=== PATIENT | male | born 1980 | race Caucasian/White ===

== ENCOUNTER → 2023-11-22 15:39 | Outpatient (CLI) | payer BC, SELFPAY ==
--- NOTE | 2023-11-22 15:43 | DI.RAD.S_ITS ---
PROCEDURE: XR HIP W PEL IF DONE DEVON MIN 4V INDICATIONS: Bilateral hip DJD TECHNIQUE: AP pelvis with lateral view(s) of the bilateral hip(s). COMPARISON: None. FINDINGS: Bones: No fractures or dislocations. Severe bilateral hip joint osteoarthritic changes are seen with complete loss of joint space, subchondral sclerosis and cyst formation and prominent marginal osteophyte formation. Avascular necrosis of bilateral femoral heads cannot be entirely excluded. Pelvic ring appears intact. No suspicious bony lesions. Soft tissues: The visualized bowel gas pattern is normal. No suspicious soft tissue calcifications. IMPRESSION: Severe bilateral hip joint osteoarthritis as described above. No acute fracture or dislocation. Cannot rule out avascular necrosis of bilateral femoral heads. Dictated by: Yair Dave M.D. on 11/22/2023 at 17:21 Approved by: Yair Dave M.D. on 11/22/2023 at 17:21
== END ==
PROVIDERS: PCP Family Medicine Sports Medicine; Referring Provider Physical Medicine & Rehabilitation; Visit Provider Physical Medicine & Rehabilitation
DX: M16.0 Bilateral primary osteoarthritis of hip (principal); R26.81 Unsteadiness on feet
CPT/HCPCS: 73522

== ENCOUNTER → 2024-01-25 13:46 | Outpatient (CLI) | payer BC, SELFPAY ==
--- NOTE | 2024-01-25 14:04 | EKG_ITS ---
[facility] [address] [address] Test Date: 2024-01-25 Pat Name: Jesse Jorge Department: [facility] Room: Gender: Male Data Coordinator: EMORY : 1980 Requested By: Order Number: [id number] Reading MD: Ceasar Mahoney Measurements Intervals [place] Rate: 74 P: 39 SC: 166 QRS: 15 QRSD: 98 T: 36 QT: 412 QTc: 457 Interpretive Statements Normal sinus rhythm Electronically Signed On 01-25-2024 18:26:38 PDT by Ceasar Mahoney
[2024-01-25 14:36] LABS: Add Manual Diff / Slide Review NO; Basophils Absolute Auto 100 /uL (0-100); Eosinophils Absolute Auto 100 /uL (0-450); Hematocrit 45.1 % (41-53); Hemoglobin 15.9 g/dL (13.5-17.5); Lymphocytes Absolute Auto 1300 /uL (1100-4500); Lymphocytes Percent Auto 19.8 % (25-40); Mean Corpuscular HGB Conc 35.2 % (30-36); Mean Corpuscular Hemoglobin 30.9 PG (26-34); Mean Corpuscular Volume 87.9 fL (80-100); Monocytes Absolute Auto 400 /uL (0-900); Monocytes Percent Auto 5.5 % (3-14); Neutrophils Absolute Auto 4800 /uL (1500-7000); Neutrophils Percent Auto 71.7 % (50-75); Platelet Count 221 X10^3/uL (150-400); Red Blood Cell Count 5.14 X10^6/uL (4.5-5.9); White Blood Cell Count 6.7 X10^3/uL (4.5-11.0)
[2024-01-25 14:46] LABS: Hemoglobin A1C% w Est Avg Glu 5.3 % (4.0-6.0)
[2024-01-25 14:48] LABS: Albumin 4.7 g/dL (3.5-5.0); BUN Creatinine Ratio 13.8 (6-22); Blood Urea Nitrogen 12 mg/dL (9-20); Calcium 9.4 mg/dL (8.4-10.2); Carbon Dioxide 28 mmol/L (22-32); Chloride 105 mmol/L (98-107); Estimated Glomerular Filt Rate > 60 mL/min (>60); Glucose 113 mg/dL (70-100); HEMOLYSIS < 15 (0-50); Potassium 4.1 mmol/L (3.4-5.1); Sodium 142 mmol/L (137-145)
[2024-01-25 14:57] LABS: Prealbumin 31.7 mg/dL (17.6-36.0)
[2024-01-26 15:03] LABS: Vitamin D 25 Hydroxy (D3) 18.3 ng/mL (30.0-100.0)
== END ==
PROVIDERS: PCP Family Medicine Sports Medicine; Referring Provider Orthopaedic Surgery Adult Reconstructive Orthopaedic Surgery; Visit Provider Orthopaedic Surgery Adult Reconstructive Orthopaedic Surgery
DX: Z01.818 Encounter for other preprocedural examination (principal); Z01.812 Encounter for preprocedural laboratory examination; E55.9 Vitamin D deficiency, unspecified; R77.0 Abnormality of albumin; R73.9 Hyperglycemia, unspecified
CPT/HCPCS: 36415; 80048; 82040; 82306; 83036; 84134; 85025; 93005

== ENCOUNTER 2024-01-25 15:12 | Outpatient (CLI) | payer BC, SELFPAY ==
[2024-01-25] VITALS (8 sets, daily range): BP systolic 144–175; BP diastolic 78–108; PULSE 73–89; RESP 11–20; TEMP 36.1; O2SAT 96–99
[2024-01-25] MEDS: MIDAZOLAM 2 MG/2 ML VIAL IV (15:59)
--- NOTE | 2024-01-25 16:00 | DI.RAD.S_ITS ---
PROCEDURE: PAIN L INTERLAMINAR/CAUDAL INJ INDICATIONS: L5-S1 translaminar [place] COMPARISON: None. FINDINGS: Fluoroscopic spot filming was performed to verify placement of spinal needles at the L5-S1 level(s), as labeled on the films. Appropriate location(s) of the needle tip(s) was confirmed by injection of iodinated contrast. IMPRESSION: Contrast a needle placement overlying L5-S1. Dictated by: Marcia Jimenez M.D. on 01/25/2024 at 16:50 Approved by: Marcia Jimenez M.D. on 01/25/2024 at 16:50
[2024-01-25] MEDS: BUPIVACAINE 0.25% (PF) VIAL 2 ML INJ (16:02)
[2024-01-25] MEDS: DEXAMETHASONE 10 MG/ML VIAL INJ (16:02)
[2024-01-25] MEDS: iopamidoL 15 ML VIAL 3 ML INJ (16:02)
[2024-01-25] MEDS: BETAMETHASONE 30 MG/5 ML MDV 6 MG INJ (16:03)
--- NOTE | 2024-01-25 16:13 | PM.PROC.IR.1 ---
Date/Time/Diagnoses Date of procedure: 01/25/24 Time of procedure: 16:13 Pre-procedure diagnosis: 1. HNP WITH RADICULAR FEATURES, 2. MULTILEVEL CENTRAL STENOSIS, Post-procedure diagnosis: same Procedure Notes Procedure: 1. FLUOROSCOPICALLY GUIDED CONTRAST CONTROLLED INTERLAMINAR EPIDURAL STEROID INJECTION - L5/S1 Indications: Jesse is referred by Dr. Llamas for treatment of Bilateral Foraminal Stenosis L>R LE symptoms. Physician: Lonnie Motta Total Fluoroscopy time (seconds): 8 Total sedation minutes: 10 Complications: none Procedure in detail & Post-procedure care: FINDINGS Multilevel Central Spinal Stenosis with Nerve Root Compression DESCRIPTION OF PROCEDURE Fluoroscopically guided, contrast-controlled L5/S1 translaminar epidural steroid injection. Following review of allergy and review of potential side effects and complications, including, but not necessarily limited to, infection, allergic reaction, local tissue breakdown, temporary as well as permanent nerve injury, paralysis, stroke and possible , the patient indicated that the patient understood and agreed to proceed. An informed consent document was signed by the patient, witnessed by a nurse, and placed in the patient's chart. Additionally, other treatment options including modalities, medications, and physical therapy were reviewed with the patient. After review of previous anaesthesic history and IV conscious sedation the patient was deemed safe to proceed with today?s procedure with IV conscious sedation as ASA class II designation. Safety time-out was performed to confirm patient ID, procedure to be performed and site of procedure. IV sedation was accomplished with a combination of 2mg of Versed administered by the RN after DO order, titrated to patient comfort during the course of the procedure while the patient remained responsive to all verbal commands. In the prone position, following sterile prep and drape of the lumbar region, the L5/S1 translaminar space was identified fluoroscopically. The skin was anesthetized via a 25-gauge, 1.5-inch needle with 1% lidocaine solution. At this point, a 22-gauge short bevel spinal needle was atraumatically introduced and advanced under fluoroscopic guidance into the region of the L5/S1 translaminar space. Depth was confirmed on lateral view. Radiological data, including multiple fluoroscopic views of the lumbar spine, reveal a spinal needle at the L5/S1 translaminar space. Lateral views then show placement of the needle in the epidural space. Subsequent views show contrast material flowing superiorly and inferiorly in the epidural space. No vascular or intrathecal uptake is observed. At this point, using loss of resistance technique with saline and air, the epidural space was entered. This was confirmed following negative aspiration with injection of approximately 1.5cc of Isovue 200, showing excellent epidural flow without vascular or intrathecal uptake. At this point, 1 cc of 1% lidocaine solution combined with 2cc or 10mg of dexamethasone and 6mg of betamethasone was injected without incident. The patent tolerated the procedure without signs of symptoms of complications prior to transfer to the recovery area for further monitoring. The patient was then transferred to the recovery area where they were observed for an appropriate period of time after the injection. The patient reported a VAS score of 6 prior to the procedure and a post-procedure VAS of 0. POST OP INSTRUCTIONS The patient was provided a Pain Log to continue to record their response to the target-specific procedure prior to follow-up visit with their referring physician. Additionally, specific post-injection care instructions and a contact number to our office were provided if concerns arise regarding possible complications associated with the procedure are suspected.
== END 2024-01-25 16:37 | disposition home or self-care (01) ==
LOC: RAD 15:12
PROVIDERS: PCP Family Medicine Sports Medicine; Referring Provider Physical Medicine & Rehabilitation; Visit Provider Physical Medicine & Rehabilitation
DX: M51.17 Intervertebral disc disorders with radiculopathy, lumbosacral region (principal); M48.07 Spinal stenosis, lumbosacral region; Z01.818 Encounter for other preprocedural examination; Z01.812 Encounter for preprocedural laboratory examination; R77.0 Abnormality of albumin; E55.9 Vitamin D deficiency, unspecified; R73.9 Hyperglycemia, unspecified
CPT/HCPCS: 36415; 62323; 80048; 82040; 82306; 83036; 84134; 85025; 93005; 99152; J0702; J1100; J2250; J3490

== ENCOUNTER 2024-03-31 11:51 | Day surgery (SDC) | payer BC, SELFPAY ==
[2024-03-16 13:52] VITALS: BMI 32.6
[2024-03-31] VITALS (10 sets, daily range): BP systolic 102–171; BP diastolic 53–114; PULSE 92–124; RESP 13–29; TEMP 36.6–37.3; O2SAT 96–100; BMI 33.6
--- NOTE | 2024-03-31 06:00 | DI.RAD.S_ITS ---
PROCEDURE: XR HIP W PEL IF DONE LT 2V INDICATIONS: JOSE TECHNIQUE: 2 view(s) of the hip acquired. COMPARISON: None. FINDINGS: Bones: Intraoperative left hip arthroplasty changes, with hardware components in expected positions. The hip joint appears congruent. The visualized bony structures appear intact. Soft tissues: No suspicious soft tissue densities. IMPRESSION: Expected intraoperative appearance of a hip arthroplasty. Dictated by: Monique Lauren MD, PhD on 04/03/2024 at 13:01 Approved by: Monique Lauren MD, PhD on 04/03/2024 at 13:02
[2024-03-31] MEDS: LACTATED RINGERS 1,000 ML 42 ML IV ×2 (12:06→14:45)
[2024-03-31] MEDS: ACETAMINOPHEN 325 MG TABLET 975 MG PO (12:06)
--- NOTE | 2024-03-31 12:38 | PM.PREOP ---
Pre-operative Note Interval Note History & Physical reviewed/Exam performed by Physician: Yes Changes to H&P: No
--- NOTE | 2024-03-31 12:39 | PM.PREOP ---
Pre-operative Note Interval Note History & Physical reviewed/Exam performed by Physician: Yes Changes to H&P: No
[2024-03-31] MEDS: MELOXICAM 7.5 MG TABLET 15 MG PO (12:45)
--- NOTE | 2024-03-31 12:46 | SUR.OPER ---
Patient supine on padded [place] table, one arm on padded arm board at <90, other arm padded and secured with tape across patient's chest, both legs secured in padded traction boots and positioned per surgeon, padded post at patient's groin, pressure points checked and padded.
[2024-03-31] MEDS: CEFAZOLIN 2 GM/100 ML PREMIX 100 ML IV ×2 (13:11→20:53)
[2024-03-31] MEDS: ROPIVACAINE/EPI/CLONIDINE/KET 50 ML SYRINGE INJ (13:31)
[2024-03-31] MEDS: SODIUM CHLORIDE IRRIG SOLUTION 3,000 ML 3000 ML IRR (13:33)
[2024-03-31] MEDS: TRANEXAMIC ACID 1,000 MG VIAL 2000 MG INJ ×2 (13:46→15:08)
--- NOTE | 2024-03-31 15:10 | DI.RAD.S_ITS ---
PROCEDURE: XR HIP W PEL IF DONE LT 2V INDICATIONS: LEFT ANTERIOR HIP TECHNIQUE: AP pelvis and lateral view of the hip acquired. COMPARISON: [facility], [facility], XR HIP W PEL IF DONE LT 2V, 03/31/2024, 14:20. FINDINGS: Bones: Patient is status post left hip arthroplasty, with hardware components in expected positions. The hip joint appears congruent. Severe right hip osteoarthritis. The visualized bony structures appear intact. Soft tissues: Overlying postoperative changes are noted. No suspicious soft tissue densities. IMPRESSION: Expected post-operative appearance of a hip arthroplasty. Dictated by: Monique Lauren MD, PhD on 04/03/2024 at 13:02 Approved by: Monique Lauren MD, PhD on 04/03/2024 at 13:02
--- NOTE | 2024-03-31 15:28 | P.OP_ITS ---
Operative Date/Time/Diagnoses Date of procedure: 03/31/24 Pre-op diagnosis: Left hip osteoarthritis Post-op diagnosis: same Procedure & Clinicians Procedure: Left total hip arthroplasty through anterior approach Same procedure as scheduled: Yes Surgeon: Bhupendra Corcoran Scale Assembly Set Up Worker: Luna Ray Anesthesia Type: Spinal, Sedation and Local Operative Notes Estimated Blood Loss (mL): 350 Procedure in detail: Left Uncemented Direct Anterior Depuy Total Hip Arthroplasty: Implants: * [place] Gription size 58 cup?with +4 liner * Actis femoral stem size 7 high offset? * 36 mm +8.5 ceramic femoral head? 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 He developed severe arthritis in his bilateral hips. We discussed the possibility of simultaneous bilateral total hip arthroplasties however I felt that given his extremely muscular body habitus the case was likely to require additional steps for exposure and take additional time. Additionally he had large osteophytes around both his femur and acetabulum which I anticipated would lead to additional bleeding following removal. I therefore recommended staged total hips. He is already scheduled for the contralateral side. On this initial side today I utilize an offset liner and a +8.5 head to maximize length as I will be returning soon for the contralateral side. I initially trialed with a standard offset neck, anticipating that the combination of the offset liner and the +8.5 head would result in adequate offset denominational however I noted diminished offset on his radiographs so I transitioned to a high offset stem for final implants Procedure in Detail: This patient was seen preoperatively and evaluated for hip pain which was refractory to numerous nonoperative treatment modalities. Their hip pain correlated with radiographic changes demonstrating significant degeneration in the hip joint. The risks and benefits of continued nonoperative management versus operative management were discussed at length and all of the patient?s questions were answered. Additional educational materials providing further details beyond our discussion in clinic were provided via a publicly available patient education video which included the incidence of medical complications associated with total hip arthroplasty, reasons for revision following total hip arthroplasty, and patient satisfaction rates following total hip arthroplasty. That video can be accessed at [email or web address] . With this understanding of the risks inherent to the procedure, the patient elected to move forward with operative management. Following preoperative optimization, the patient was scheduled for surgery. The patient was met in the preoperative holding area the day of the procedure and all questions were answered. The patient?s nares were swabbed with betadine in order to decolonize them from MRSA. Informed consent was signed and the left limb was marked with indelible ink.? The patient was brought back to the operating room where anesthesia was induced. The patient was transferred to the [place] table and all bony prominences were padded. The operative site was prepped and draped in the usual sterile fashion. Prior to incision, tranexamic acid and cefazolin were administered. Operative templating images were displayed demonstrating the anticipated implant sizes and correct operative extremity. A timeout procedure was performed verifying the patient?s identity, medical comorbidities, allergies, relevant medications, anesthesia type and the surgical plan. All present were in agreement. The assistance of a physician personal care assistant was required for positioning, room setup, soft tissue retraction and wound closure. Without this assistance, the procedure would have been significantly more challenging and time consuming.?? A direct anterior approach to the hip was utilized. This was performed with a longitudinal incision through a Heuter interval. The incision was planned 2 cm distal and 2 cm lateral to the ASIS extending towards the lateral patella, in line with the muscle body of the TFL. Following incision, the subcutaneous tissue was dissected while taking care to avoid injury to the lateral femoral cutaneous nerve. The fascia overlying the TFL was identified by dissecting off the overlying fat and identifying perforating vessels to the TFL. The TFL fascia was incised and dissected away from the medial border of the TFL. A cobra retractor was placed over the superior femoral neck between the abductors and the hip capsule and used to reflect the TFL laterally. A Whitley self-retainer was then placed in the distal aspect of the wound between the TFL and the rectus femoris. This was tensioned to open up the direct anterior interval and the lateral circumflex vessels were identified and coagulated using electrocautery. The floor of the TFL fascia was incised, exposing the pericapsular fat overlying the hip capsule. A second cobra retractor was placed on the inferior femoral neck. A double-bent soft tissue retractor was placed on the anterior wall of the acetabulum and used to tension the reflected head of rectus femoris, which was then released in order to limit soft tissue tension. A capsulotomy was made in the midline of the anterior hip capsule in line with the femoral neck ending at the vastus tubercle. The double-bent retractor was removed in order to limit the amount of time that a soft tissue retractor remained on the anterior wall and protect the femoral nerve. Tag stitches were placed in the superior and inferior leaflets of the hip capsule. An Nemesio soft tissue retractor was introduced over the tag stitches and tensioned in the interval between the rectus femoris and the TFL in order to retract and protect those muscles. The cobra retractors were replaced intracapsularly, with one over the superior neck in the pocket created by the base of the greater trochanter and the other on the femoral head. The capsulotomy was extended laterally to the base of the greater trochanter and medially to the lesser trochanter. This required externally rotating the hip. Once the lesser trochanter had been identified, a neck cut was planned according to measurements from preoperative templating. A ruler was cut at the length measured between the superior aspect of the lesser trochanter and the collar of the prosthesis. This line was extended towards the inferior aspect of the lateral cobra retractor to plan a cut which would leave minimal residual femoral neck laterally. The neck was cut at 60 degrees of external rotation along that line. A second cut was performed to remove a large napkin ring and facilitate head extraction. The napkin ring cut and femoral head were removed.?? A broad anterior wall retractor was placed between the labrum and the anterior capsule so that the anterior capsule would prevent capturing and pinching the femoral nerve anteriorly. An additional retractor was placed on the posterior wall. External rotation and traction were applied through the [place] table so that the cut surface of the femoral neck would not restrict access to the acetabulum. The labrum was excised sharply and the pulvinar was excised with electrocautery to limit bleeding from branches of the obturator artery. Acetabular reamers were selected based on preoperative templating and measurements of the excised femoral head. These were introduced into the acetabulum. Fluoroscopy was utilized to replicate a standing AP pelvis radiograph by centering over the pelvis, rotating until there was appropriate symmetry between the obturator foramen, and introducing caudal tilt to match the position of the pubic symphysis relative to the sacrococcygeal junction according to the patient?s anatomy. Fluoroscopy was utilized to ensure appropriate reaming depth. Once satisfied with the reaming depth corresponding to the preoperative template and the pinch fit between the columns, an appropriate sized acetabular cup was selected which would provide 1 mm of press-fit. This cup was introduced and m anipulated until appropriate abduction and anteversion angles were obtained with careful attention to appropriate abduction and anteversion angles as evaluated by the position of the cup relative to the anterior and posterior kaur of the acetabulum and the AP fluoroscopy which recreated the patient?s standing radiograph. The cup was impacted into place. Peripheral osteophytes were removed. The acetabular liner was then placed with care to ensure locking of the locking mechanism.? Attention was then turned to the femur. All retractors were removed, traction was released, a retractor was placed in the interval between the hip capsule and the gluteus minimus, and the hip was externally rotated to 90 degrees. Traction was applied through the [place] table to tension the lateral capsule and this was released using electrocautery. Traction was released and a [place] hook was placed posteriorly around the proximal femur at the level of the vastus ridge. The table height was lowered in order to restrict the tension on the anterior structures during hip hyperextension to limit the risk of femoral nerve palsy. With traction off and the hip at 90 degrees of external rotation, the hip was hyperextended and adducted while manually elevating the femur away from the acetabulum with the [place] hook to ensure it would not be caught behind the greater trochanter. An asymmetric retractor was placed over the calcar and a broad double-pronged retractor was placed over the greater trochanter. The tag stitch capturing the lateral leaflet of the capsule was moved to the medial side, leaving the conjoined and piriformis tendons isolated in the face of the greater trochanter. The hip was externally rotated and elevated. A release of the conjoined tendon was necessary in order to obtain adequate exposure for broaching. The canal was opened with an opening broach and a rasp was used to remove cancellous bone. A rongeur was used to remove the residual lateral bone at the base of the greater trochanter to avoid placing the stem in varus. The femur was then broached to the appropriate sized stem yielding good rotational fit and fill of the canal as well as appropriate version of the stem trial. Neck and head trials were placed, all retractors were removed and the hip was returned to neutral abduction and extension. I then reduced the hip. Initial trialing was performed with a size 7 broach, a standard offset neck and a +8.5 head. I initially manually externally rotated the hip and found no instability. I then locked the hip in 45 degrees of external rotation and dropped it to the floor with traction off which demonstrated no instability. An AP pelvis fluoroscopic image matching the preoperative standing radiograph with both lesser trochanters visible and both hips in 40 degrees of external rotation demonstrated that the operative site was long, as I had intended given my plan to returned for his right side, and that his offset was diminished as compared to his preoperative radiograph. AP and lateral hip fluoroscopic images were obtained to evaluate the broach size which demonstrated appropriate canal fill. The hip was dislocated and I returned to the broaching position. Based on my evaluation during initial trialing I planned to place all of the trial implants with the exception of transitioning from a standard offset to a high offset stem. The definitive stem was placed and the trunnion was cleaned and dried. I placed a ceramic head onto the trunnion and impacted it into place on the Reynolds taper.?? All retractors were removed and the hip was reduced. A dilute mixture of betadine and peroxide was used to bathe the soft tissues during final fluoroscopic assessment. Appropriate component positioning was confirmed on an AP pelvis radiograph with the operative and nonoperative legs in 40 degrees of external rotation, evaluating leg length and offset. Appropriate stem fill was evaluated on AP and lateral hip radiographs. No fractures were identified on these radiographs. There was no hip instability with maximum (120) external rotation as well as a 45 degree drop test. The hip was copiously irrigated with pulse lavage. The capsule was closed with absorbable interrupted suture. The TFL fascia was closed with barbed suture while carefully protecting the lateral femoral cutaneous nerve from entrapment. A mixture of Ropivacaine, Epinephrine, Clonidine and Toradol was infiltrated throughout the soft tissues. The skin was closed with 2-0 and 3-0 sutures. Surgical glue was applied and a soft dressing was placed.??The sponge, instrument and needle counts were reported as being correct at the end of the case.??No obvious complications occurred. The patient was transferred from the [place] table back to a stretcher. The patient emerged from anesthesia without difficulty and was taken to the PACU in a stable condition.? Plan for aftercare: * Anterior hip precautions * Weightbearing as tolerated * Aspirin 81 twice per day for DVT prophylaxis * Anticipate discharge home today * Change into normal clothes upon arrival on the hospital floor * Mobilize in the halls as much as is logistically possible. If physical therapy is unavailable for mobilization, then patient should mobilize with nursing staff * Multimodal pain regimen with no IV opioids ordered * Apply ice machine to operative hip. Ensure that sufficient ice is in the ch lillie for the pad to remain cold * Follow up at [facility] in 2 weeks * Detailed postoperative instructions available at [email or web address]
[2024-03-31] MEDS: LACTATED RINGERS 1,000 ML 100 ML IV (16:39)
[2024-03-31] MEDS: ACETAMINOPHEN 325 MG TABLET 650 MG PO ×2 (16:39→21:35)
[2024-03-31] MEDS: OXYCODONE IR 5 MG TABLET PO ×3 (17:10→23:30)
[2024-03-31] MEDS: TRAMADOL 50 MG TABLET PO (17:59)
[2024-03-31] MEDS: TRAZODONE 50 MG TABLET 100 MG PO (20:52)
[2024-03-31] MEDS: CYCLOBENZAPRINE 10 MG TABLET PO (20:53)
[2024-03-31] MEDS: GABAPENTIN 300 MG CAPSULE 900 MG PO (20:53)
[2024-03-31] MEDS: DOCUSATE 100 MG CAPSULE PO (20:53)
[2024-03-31] MEDS: ASPIRIN EC 81 MG TABLET PO (20:53)
[2024-04-01] MEDS: LACTATED RINGERS 1,000 ML 100 ML IV
[2024-04-01] MEDS: OXYCODONE IR 5 MG TABLET PO ×2 (02:11→06:33)
[2024-04-01] MEDS: ACETAMINOPHEN 325 MG TABLET 650 MG PO ×2 (02:11→11:34)
[2024-04-01] MEDS: TRAMADOL 50 MG TABLET PO ×2 (03:51→11:34)
[2024-04-01] MEDS: CEFAZOLIN 2 GM/100 ML PREMIX 100 ML IV (04:32)
[2024-04-01 05:34] LABS: Hematocrit 31.8 % (41-53); Hemoglobin 11.5 g/dL (13.5-17.5)
[2024-04-01 08:00] VITALS: BP 157/106; PULSE 60; RESP 16; TEMP 37.3; O2SAT 98
[2024-04-01] MEDS: ASPIRIN EC 81 MG TABLET PO (08:28)
[2024-04-01] MEDS: MELOXICAM 7.5 MG TABLET 15 MG PO (08:28)
[2024-04-01] MEDS: DOCUSATE 100 MG CAPSULE PO (08:28)
[2024-04-01] MEDS: CYCLOBENZAPRINE 10 MG TABLET PO (08:30)
[2024-04-01] MEDS: SODIUM CHLORIDE 0.9% FLUSH 10 ML IV (08:30)
[2024-04-01] MEDS: GABAPENTIN 300 MG CAPSULE 900 MG PO (08:30)
--- NOTE | 2024-04-01 09:29 | PM.DS.1 ---
History of Present Illness History of Present Illness Date Patient Seen: 04/01/24 Time Patient Seen: 09:29 Chief complaint: OPB Narrative: Operative Date/Time/Diagnoses Date of procedure: 03/31/24 Pre-op diagnosis: Left hip osteoarthritis Post-op diagnosis: same Procedure & Clinicians Procedure: Left total hip arthroplasty through anterior approach Same procedure as scheduled: Yes Surgeon: Bhupendra Corcoran Business Unit Controller: Luna Ray Anesthesia Type: Spinal, Sedation and Local Operative Notes Estimated Blood Loss (mL): 350 Procedure in detail: Left Uncemented Direct Anterior Depuy Total Hip Arthroplasty: Implants: Barry Gription size 58 cup?with +4 liner Actis femoral stem size 7 high offset? 36 mm +8.5 ceramic femoral head? Discharge Providers Provider Discharge Date: 04/01/24 Primary care physician: Perry Llamas MD Consults: 03/31/24 06:00 Consult to Anesthesiology Routine Comment: Consulting Provider: Anesthesiologist Reason for consultation: Regional block for post operative pain control 03/31/24 16:20 Consult to Discharge Planning Routine Comment: Consult to Physical Therapy Evaluate & Treat Comment: Physician Instructions: post op JOSE protocol Discharge provider: Luna Ray PA-C Summary Hospital Course Discharge Diagnosis: Left hip osteoarthritis, s/p left total hip arthroplasty Hospital Course: Mr Jorge's hospital course was unremarkable. ON the morning of POD# 1, he complained of pain. He had not yet been OOB or worked w/ PT. He was eating and voiding without difficulty. His BP was elevated, which he states is normal for him. He denied PATEL or visual changes. Exam Vital Signs (past 8 hours): - 04/01/24 08:00 Temperature 99.2 F Pulse Rate 60 Respiratory Rate 16 Blood Pressure 157/106 H Pulse Oximetry 98 Oxygen Flow Rate 0 Oxygen Delivery Method Room Air Oxygen Flow Rate 0 Narrative Exam Narrative: 3/5 hip flexors, quadriceps, hamstrings; 5/5 PF, DF, EHL on left. Sensation to light touch intact throughout LLE, calf soft and compressible. Aquacel dressing CDI. Objective Labs 04/01/24 05:22 Labs: Laboratory Results - last 24 hr 04/01/24 05:22 Hgb 11.5 L Hct 31.8 L PFSH Medical History (Updated 03/16/24 @ 14:37 by Marie Espinal RN) Tibia fracture Concussion Arthritis MILAGROS (obstructive sleep apnea) PTSD (post-traumatic stress disorder) Depression Anxiety Mini stroke (2013) Spinal stenosis Gait instability Facet arthropathy, lumbar Herniated nucleus pulposus, L5-S1 Degenerative joint disease of both hips Surgical History Hx of tonsillectomy Family History Mother Hypertension Social History household members: none Smoking Status: Never smoker alcohol intake: current Discharge Assessment & Plan Assessment and Plan Assessment: Left hip osteoarthritis, s/p left total hip arthroplasty Plan of Treatment: Discharge home after PT if PT agrees. Multimodal pain control, ASA 81mg BID for VTE prophylaxis, outpt PT, f/u in office in 2 weeks as scheduled. Discharge Plan Discharge Plan Patient Disposition: Home Provider Discharge Comment: Pt has postop oxycodone and other meds at home. Discharge orders & Medications Discharge Orders: Discharge (Order); Ordered 04/01/24 Ordered By: Luna Ray Prescriptions: Continued meloxicam 15 mg tablet 15 mg PO DAILY Qty: 30 2RF gabapentin 300 mg capsule 900 mg PO BID trazodone 100 mg tablet 100 mg PO ONCE PM Follow up/Referrals: Perry Llamas MD [Primary Care Provider] - Bhupendra Corcoran MD [Physician] - 04/12/24 2:20 pm (Follow up w/ Curly Hampton PA-C, at [facility] in [place].) Diet/Activity/Treatments Diet: Diet as Tolerated Activity: Weightbearing as tolerated. Anterior hip precautions. Cold/Heat Therapy: Ice to hip as needed for pain. Skin/Wound/Dressing Care Report to your healthcare provider any signs of infection, such as:: chills, fever, night sweats, unusual drainage and unusual redness Dressing: May shower. Leave dressing in place until follow up in office. No bathing or otherwise soaking incision. Call the office if the dressing becomes saturated inside. Visit Report/Discharge Packet Instructions: DI for Hip Replacement, DI for Prescription Opioid Use Stand Alone Forms: Patient Portal/API, Surgery Discharge Discharge Data Primary Care Provider: Perry Llamas Attending Provider: Bhupendra Corcoran Quality VTE Deep Vein Thrombosis/Pulmonary Embolism Present on Admission: No
--- NOTE | 2024-04-01 10:00 | PT.IIE ---
Current Diagnoses Unilateral primary osteoarthritis, left hip (03/31/24) Surgery Performed Operation Date: 03/31/24 14:00 Actual Procedures p Total Hip Arthroplasty/Anterior Approach(Left) - Bhupendra Corcoran MD Surgical History (Last Reviewed 11/22/23 @ 15:28 by Lonnie Motta DO) Hx of tonsillectomy Medical History (Last Updated 03/16/24 @ 14:37 by Marie Espinal RN) Anxiety Arthritis Concussion Degenerative joint disease of both hips Depression Facet arthropathy, lumbar Gait instability Herniated nucleus pulposus, L5-S1 Mini stroke (2012) MILAGROS (obstructive sleep apnea) PTSD (post-traumatic stress disorder) Spinal stenosis Tibia fracture Physical Therapy Inpatient Evaluation/Re-Eval M1 PT/OT-IP Prior Functional Status Start: 04/01/24 12:11 Freq: NEEDED Status: Active Protocol: Document 04/01/24 10:00 AB (Rec: 04/01/24 12:28 AB [id number]) Medical Review Prior Functional Status Medical History Reviewed Yes Communication able to make needs known Mobility and Gait pt stated that he was modified independent with all mobilities and ambulation without AD Social History Household Members none Living Arrangements RV Number of Floors (Floors) One Floor Number of Stairs To Enter/Railing? 4 steps L rail ascending Home Environment Tub/Shower Home Equipment Front Wheel Walker,Straight Cane,Crutches,Hand Held Shower Additional Social History Comment pt stated that his GF will stay and assist him; daughter also will check with pt to assist if needed pt stated that he will go to his GF's house for showers: walk in shower, no shower chair has a toilet safety frame pt also plans to sleep on his recliner M2 PT-IP Current Condition Start: 04/01/24 12:11 Freq: NEEDED Status: Active Protocol: Document 04/01/24 10:00 AB (Rec: 04/01/24 12:28 AB [id number]) Physical Therapy Current Condition Current Condition Evaluation Date 04/01/24 Treatment Diagnosis s/p L JOSE anterior; difficulty in walking Onset Date 03/31/24 M3 PT-IP Subjective Start: 04/01/24 12:11 Freq: NEEDED Status: Active Protocol: Document 04/01/24 10:00 AB (Rec: 04/01/24 12:28 AB [id number]) Subjective Physical Therapy Visit Type Type Initial Evaluation Visit Start Time 10:00 Visit Stop Time 11:00 Number of ADULT BASIC EDUCATION TEACHER Visits 0 Physical Therapy Visit Comments Patient Comments agreeable to do PT Therapy Pain Assessment Pain When Pain Assessed During Mobility Location Left Hip Scale Used pain scale not stated but c/o tightness and soreness Pain Management Techniques Apply Cold,Modification of Treatment,Re-positioning, Timing of Activity with Medications M4 PT-IP Mobility and Gait Start: 04/01/24 12:11 Freq: NEEDED Status: Active Protocol: Document 04/01/24 10:00 AB (Rec: 04/01/24 12:28 AB [id number]) PT-Bed Mobility Assessment Rolling Type of Rolling Log Rolling Level of Assist Minimal Assistance Supine to Sit Supine to Sit Minimal Assistance,Head of Bed Elevated,Bedrails PT-Transfer Assessment Sit to and From Stand Sit to and from Stand Standby Assistance,1 Person Assistance,Use of Upper Extremities Equipment Transfer Assistive Device Gait Belt,Front Wheeled Walker Orthotic/Prosthetic Devices or Brace: No Transfers Transfer Destination Chair Transfer Technique ambulation Transfer Ability Level of Assist Standby Assistance,1 Person Assistance,Use of Upper Extremities Comments Mobility Comments pt supine in bed and daughter in room. obtained PLOF and home set up. post-op folder provided and reviewed contents . educated pt on L hip atnerior precautions. pt's daughter stated that she works as a HYPERION DEVELOPER and knows how to assist pt. pt completed supine to sit min A and max cues for techniques and to adhere to precautions. pt tends to direct his own care. educated pt on safety and precautions. pt completed sit to stand from the EOB SBA and ambulated in room using FWW SBA 15 ft. pt sat on the chair . pt tend not to use LLE for sit to stand with increase guarding during mobility. educated pt on safety and importance of functional movement on LLE and muscle re- ed. caregiver training conducted and daughter was able to put safety belt on pt. pt ambulated to the hallway ~ 150 ft using FWW SBA. completed up/down steps using B rails SBA and completed again holding on to L rail with B hands SBA. pt ambulated back to his room using FWW SBA. pt sat on chair. positioned on the chair. call light and table placed within reach. informed pt and daughter regarding DME needs. Gait Assessment Gait Gait Assistance Required: Standby Assistance Distance (Feet) 150 Able to Maintain Weight Bearing Status Yes During Gait Assistive Devices Assistive Device Gait Belt,Front Wheeled Walker Orthotic/Prosthetic Devices or Brace: No Gait Deviations General Gait Pattern Antalgic,Decreased Stride Length,Decreased Feet Clearance Factors Limiting Gait Function Factors Limiting Gait Function Decreased Activity Tolerance, Decreased Strength,Difficulty Following Directions,Limited Range of Motion,Pain,Poor Balance,Poor Safety Awareness Stair Climbing Assessment Evaluation Level of Assist On Stairs Standby Assistance Devices Stair Climbing Assistive Devices Left Railing,Right Railing Technique/Endurance Stair Climbing Technique Step to Step Number of Steps Climbed 3 Query Text: Stair Climbing Set # Repetitions (reps) 2 Comments Stair Climbing Comments pls refer to mobility section for details PT-Balance Assessment Sitting Balance and Reactions Static Sitting Balance Ability Normal Dynamic Sitting Balance Ability Good Standing Balance and Reactions Static Standing Balance Ability Fair Dynamic Standing Balance Ability Fair Device Used FWW M5 PT-IP Objective Assessments Start: 04/01/24 12:11 Freq: NEEDED Status: Active Protocol: Document 04/01/24 10:00 AB (Rec: 04/01/24 12:28 [id number]) Orientation Orientation/Cognition Level of Alertness Alert Orientation Name,Place,Situation Language Function Ability No Deficits Noted Safety Awareness Decreased Safety Awareness Memory Description No Deficits Noted Gross Range of Motion Lower Extremity ROM Assessment Within Functional Limits Strength Lower Extremity Strength Assessment Left Impaired Hip 3-/5 Knee 4-/5 Coordination Assessment Gross Coordination Gross Coordination WNL Sensation Assessment Sensation Gross Sensation WNL Muscle Tone Muscle Tone WNL Yes M6 PT-IP Treatment Start: 04/01/24 12:11 Freq: NEEDED Status: Active Protocol: Document 04/01/24 10:00 AB (Rec: 04/01/24 12:28 [id number]) Physical Therapy Treatment Education Education Provided Precautions,Weight Bearing Status,Post-Op Packet,Safety M7 PT-IP Assessment and Plan Start: 04/01/24 12:11 Freq: NEEDED Status: Active Protocol: Document 04/01/24 10:00 AB (Rec: 04/01/24 12:28 [id number]) PT Summary Assessment and Plan Potential Rehabilitation Potential Fair Status of Condition at Evaluation Stable Summary Impairments Pain,ROM,Strength,Balance, Coordination,Sensation,Tone, Cognition,Bed Mobility, Transfers,Gait,Activity Tolerance Assessment Summary pt is a 43 y/o M s/p L JOSE anterior approach POD 1. pt with L hip anterior precautions and is WBAT. pt requiring min A for bed mobility but plans to just use his recliner to sleep on for now. pt able to transfer and ambulate using FWW SBA. pt will have his GF and daughter to assist him if needed. pt plans to go home and has outpt PT set up. pt may go home when medically stable. Goals Bed Mobility Goal Independent Transfer Goal Independent,Front Wheeled Walker Gait Goal Independent,Front Wheel Walker Gait Distance 300 Other Goals up/down 4 steps L rail mod I Days to Meet Goals 5 Frequency of Treatment Frequency Of Treatment Twice a Day Treatment Plan Physical Therapy Treatment Plan Bed Mobility Training,Transfer Training,Gait Training, Therapeutic Exercise,Balance Retraining,Post Op Education, Discharge Planning,Hot or Cold Pack,Neuromuscular Re-ed, Coordination Retraining,Manual Therapy Precautions Anterior Hip Precautions No Hip Extension,No Hip External Rotation Weight Bearing Status Weight Bearing Status Weight Bear as Tolerated Allowed Weight Bearing Amount (enter % LLE WBAT or #) (%) Recommendations To Nursing Amount of Assist Needed Standby Assistance Discharge Recommendations PT Discharge Recommendations Home with Assistance, Outpatient PT Transportation Needs at Discharge Private Vehicle
--- NOTE | 2024-04-01 11:52 | CM.DANOTE ---
Initial DCP Assessment Visit Note Reviewed EMR and team rounds for status updates. Met with pt and his dtr at bedside to introduce self and role, pt was found to be alert/oriented, sitting the the recliner in no apparent distress. He lives alone independently, is currently from his , however he does have a support network of friends and his dtr to assist with postoperative care needs/assistance. His dtr will be transporting him back home today in early afternoon. He declines any DCP assistance or resources at this time. Payor: [facility] Attending: Dr. Corcoran Pt is a 43 fyear-old M post-op day 1 from a L-total hip arthroplasty surgery. He has a hx of bilateral hip osteoarthritis as a result of being intensely active in his younger years, the left-hip being the most symptomatic and painful at this time. He tried conservative measures such as PT and gabapentin without lasting benefit. Pt is doing well postoperatively with pain well controlled. He did well with therapies and will plan for OP PT post-discharge. DCP will continue to monitor for any further evolving needs prior to his departure. Discharge Planning/Care Management CM Discharge Assessment Start: 04/01/24 11:50 Freq: Status: Active Protocol: Document 04/01/24 11:50 DPL (Rec: 04/01/24 11:51 DPL [id number]) Discharge Planning Assessment Assigned Forensic Investigator DENISSE Siddiqi Advance Directives? No History Provided By Patient,Medical Record Has Patient been admitted in last 30 No days? Prior Living Arrangements RV Comment patient lives alone, has friends that will check in on him Household Members none Type of transporation used prior to Drives own vehicle admit Independent with ADL's Yes Is patient alert and oriented? Yes Caregiver for Another No Community Services used prior to Physical Therapy admission: DME Already Rented / Owned FWW / Walker Patient/Family Preference OP PT Therapy Barriers to Discharge No Discharge Plan Home Community Services Physical Therapy Transportation Arrangement Daughter Referrals Initiated None needed Whiteboard Updated in Patient Room with Yes name and ext. # of Forensic Investigator Review Status In Process Please Provide Date Initial DC 04/01/24 Assessment Was Performed Pre-Anesthesia Assessment Start: 03/16/24 13:52 Freq: Status: Active Protocol: Document 03/16/24 13:52 LB (Rec: 03/16/24 14:38 LB [id number]) Pre-Anesthesia Assessment PAC Comment PAC - phone assessment 03/16/24 Patient Information Reviewed Via Phone Assessment Assessment Completed With Patient Diagnostic Results BMP/CMP,CBC,EKG Comment EKG and labs 01/25/24 at Primary Care Provider Farhad Amador Medical Clearance Received Yes Seen Specialist in Last 12 Months Yes Specialist Seen Orthopedist,Other Comment preop visit 01/31/24 scanned and in surgery folder. Primary Language Maldivian Preferred Language Maldivian Water Restoration Technician Required No Height 172.72 cm Weight 97.522 kg Body Mass Index (BMI) 32.6 Hearing Ability Normal Visual Impairment Partially Limited Visual Assist Glasses Dentition Type Teeth, Missing Barriers to Learning None Hx Anesthesia Reactions No Hx Family Anesthesia Reaction No Hx Malignant Hyperthermia No Hx Blood Transfusions No alcohol intake current alcohol intake frequency a few times a month Smoking Status Never smoker Substance Use Type marijuana Comment gummies Pain Present Denied Pain Musculoskeletal Symptoms Abnormal Gait,Back Pain, Difficulty Walking,Joint Pain, Joint Stiffness,Muscle Weakness,Neck Pain History of Falling (Recent or History of Yes ) Comment 03/18 hip gave out Mental Status Oriented to own ability Is patient on oxygen? No Does patient have PAIGE/SOB No Hx Sleep Apnea Yes CPAP/BIPAP use prescribed and used routinely Will Bring CPAP/BIPAP DOS Yes Currently Taking a Beta Jose No Hx Chest Pain No Hx SOB No Hx Syncope or Dizziness No Anti-Coagulant Therapy No Has a Technology Methodology Consultant No Hx Pacemaker/ICD No Diet Type At Home Regular Dysphagia No Urinary Catheter Present No Hx Urinary Self Catheterization No Diabetes No Hx Drug Resistant Organism No Presence of External or Internal Medical No Devices Marital Status Legally Lives With none Current Living Arrangements RV Number of Floors (Floors) One Floor Number of Stairs To Enter/Railing? 4 stairs, + railing Support System Child/Children,Significant Other Does the Patient Have Assistance After Yes Surgery Patient Discharge Plan Description Return Home Additional comment no LOS communicated. Feels Safe in Current Environment Yes Do you have a plan to hurt yourself or No Plan others? Do You Have Any Spiritual Beliefs That No May Affect Your HC Choices? Do You Have Any Cultural Practices That No May Affect Your HC Choices? Who Can We Speak to About Patient's Care Friends, Family Identifying Code for Release of Patient declines to issue Information Health Care Proxy/Next of Kin [place] - daughter Health Care Proxy Emergency Contact Name Estella MOREIRA Emergency Contact Advance Directives? No PAC Instructions Assistance for 24 hours post- op,Bring CPAP/BIPAP,Do not shave/clip surgical site, Durable medical equipment, Medications to take/avoid, Nasal antibiotic,No ETOH/ petroleum product on skin DOS, NPO,Post-op transportation,Pre -surgical wash,Sensory aids, Sturdy shoes/comfortable clothes,Do not bring valuables and remove jewelry
--- NOTE | 2024-04-01 11:59 | PC.NURSE ---
Pt discharged home at 1145, escorted off floor in wheelchair accompanied by family and hospital staff. IV removed, discharge teaching completed including new prescriptions already at home, wound care, and follow up appointments. Questions answered and concerns addressed. Patient left the floor with all belongings.
== END 2024-04-01 12:02 | disposition home or self-care (01) ==
LOC: OR 11:51 → AC 11:52
PROVIDERS: PCP Family Medicine Sports Medicine; Referring Provider Orthopaedic Surgery Adult Reconstructive Orthopaedic Surgery; Visit Provider Orthopaedic Surgery Adult Reconstructive Orthopaedic Surgery
PROC: (CPT 27130; principal; 2024-03-31 14:00)
DX: M16.12 Unilateral primary osteoarthritis, left hip (principal); M25.752 Osteophyte, left hip
CPT/HCPCS: 27130; 36415; 73502; 76000; 85014; 85018; 97116; 97161; 97530; C1776; J0690; J2250; J2405; J2704; J3010

== ENCOUNTER 2024-05-12 11:52 | Day surgery (SDC) | payer BC, SELFPAY ==
[2024-03-31 16:11] VITALS: BMI 33.6
[2024-05-09 11:54] VITALS: BMI 33.1
[2024-05-12] VITALS (17 sets, daily range): BP systolic 109–154; BP diastolic 73–105; PULSE 102–125; RESP 9–23; TEMP 35.8–37.3; O2SAT 94–99; BMI 34.0
--- NOTE | 2024-05-12 | DI.RAD.S_ITS ---
PROCEDURE: XR HIP W PEL IF DONE RT 2V INDICATIONS: TOTAL HIP arthroplasty TECHNIQUE: AP pelvis and lateral view of the hip acquired. COMPARISON: [facility], [place], XR HIP W PEL IF DONE LT 2V, 03/31/2024, 15:41. FINDINGS / IMPRESSION: Six fluoroscopic spot images for right hip arthroplasty are submitted. No gross evidence of periprosthetic fracture or high attenuation surgical instrument or foreign body. Dosimetry values are not delineated. Dictated by: Ghassan Caceres M.D. on 05/15/2024 at 10:40 Approved by: Ghassan Caceres M.D. on 05/15/2024 at 10:43
--- NOTE | 2024-05-12 | DI.RAD.S_ITS ---
PROCEDURE: XR HIP W PEL IF DONE RT 2V INDICATIONS: POST OP TECHNIQUE: AP pelvis and lateral view of the hip acquired. COMPARISON: [facility], [place], XR HIP W PEL IF DONE RT 2V, 05/12/2024, 14:16. [facility], [place], XR HIP W PEL IF DONE LT 2V, 03/31/2024, 15:41. FINDINGS: Bones: Patient is status post right hip arthroplasty, with hardware components in expected positions. The hip joint appears congruent. Stable appearance of left hip arthroplasty. The visualized bony structures appear intact. Soft tissues: Overlying postoperative changes are noted. No suspicious soft tissue densities. IMPRESSION: Expected post-operative appearance of a right hip arthroplasty. Dictated by: Azael Carlos M.D. on 05/12/2024 at 16:46 Approved by: Azael Carlos M.D. on 05/12/2024 at 16:46
[2024-05-12] MEDS: LACTATED RINGERS 1,000 ML 42 ML IV ×2 (12:58→14:50)
[2024-05-12] MEDS: TRANEXAMIC ACID 1,000 MG in SODIUM CHLORIDE 0.9% 100 ML 200 MG IV ×2 (13:30→15:04)
[2024-05-12] MEDS: [UNRECOGNIZED DRUG - OTHER] IRR (13:30)
[2024-05-12] MEDS: ROPIVACAINE/EPI/CLONIDINE/KET 50 ML SYRINGE INJ (13:44)
--- NOTE | 2024-05-12 15:13 | P.OP_ITS ---
Operative Date/Time/Diagnoses Date of procedure: 05/12/24 Pre-op diagnosis: Right hip osteoarthritis Post-op diagnosis: same Procedure & Clinicians Procedure: Right total hip arthroplasty Same procedure as scheduled: Yes Surgeon: Bhupendra Corcoran Credit Review Analyst: Lola Jimenez Anesthesia Type: Spinal, Sedation and Local Operative Notes Estimated Blood Loss (mL): 350 Procedure in detail: Right Uncemented Direct Anterior Depuy Total Hip Arthroplasty: Implants: * [place] Gription size 58 cup?with +4 liner * Actis femoral stem size 7 high offset? * 36 mm +8.5 ceramic femoral head? Procedure Summary: This 44-year-old male patient underwent a contralateral total hip arthroplasty performed by myself about a month ago. I had planned to perform his bilateral hips in a rapid staged fashion given his extremely muscular body habitus which I anticipated would make his case more complicated and therefore I did not feel would be appropriate for simultaneous bilateral total hip arthroplasties. During today's procedure I performed accessory releases of the TFL and the conjoined tendon because he had had some tension damage to his TFL during his contralateral side. He had extremely large osteophytes around his acetabulum which were actually so big that they achieved a pinch fit on the acetabular component when I introduced it and I had to remove them prior to implanting the acetabular component in order to get it into an appropriate position. I had significantly lengthened him during the prior procedure and used matching implants for today's procedure. Because of the significant lengthening the construct was fairly tight during reduction. I could externally rotate him as far as 90? but could not rotate past that. There was no instability with any testing, unsurprising given the amount that I had lengthened him. His leg lengths at the conclusion of the procedure were equal to the contralateral side when using a long metal bar across the transitional line to control for fluoroscopic distortion. There was minimal damage to his TFL Procedure in Detail: This patient was seen preoperatively and evaluated for hip pain which was refractory to numerous nonoperative treatment modalities. Their hip pain correlated with radiographic changes demonstrating significant degeneration in the hip joint. The risks and benefits of continued nonoperative management vers us operative management were discussed at length and all of the patient?s questions were answered. Additional educational materials providing further details beyond our discussion in clinic were provided via a publicly available patient education video which included the incidence of medical complications associated with total hip arthroplasty, reasons for revision following total hip arthroplasty, and patient satisfaction rates following total hip arthroplasty. That video can be accessed at [email or web address] . With this understanding of the risks inherent to the procedure, the patient elected to move forward with operative management. Following preoperative optimization, the patient was scheduled for surgery. The patient was met in the preoperative holding area the day of the procedure and all questions were answered. The patient?s nares were swabbed with betadine in order to decolonize them from MRSA. Informed consent was signed and the right limb was marked with indelible ink.? The patient was brought back to the operating room where anesthesia was induced. The patient was transferred to the [place] table and all bony prominences were padded. The operative site was prepped and draped in the usual sterile fashion. Prior to incision, tranexamic acid and cefazolin were administered. Operative templating images were displayed demonstrating the anticipated implant sizes and correct operative extremity. A timeout procedure was performed verifying the patient?s identity, medical comorbidities, allergies, relevant medications, anesthesia type and the surgical plan. All present were in agreement. The assistance of a physician apartment assistant manager was required for positioning, room setup, soft tissue retraction and wound closure. Without this assistance, the procedure would have been significantly more challenging and time consuming.?? A direct anterior approach to the hip was utilized. This was performed with a longitudinal incision through a Heuter interval. The incision was planned 2 cm distal and 2 cm lateral to the ASIS extending towards the lateral patella, in line with the muscle body of the TFL. Following incision, the subcutaneous tissue was dissected while taking care to avoid injury to the lateral femoral cutaneous nerve. The fascia overlying the TFL was identified by dissecting off the overlying fat and identifying perforating vessels to the TFL. The TFL fascia was incised and dissected away from the medial border of the TFL. A cobra retractor was placed over the superior femoral neck between the abductors and the hip capsule and used to reflect the TFL laterally. A [place] self-retainer was then placed in the distal aspect of the wound between the TFL and the rectus femoris. This was tensioned to open up the direct anterior interval and the lateral circumflex vessels were identified and coagulated using electrocautery. The floor of the TFL fascia was incised, exposing the pericapsular fat overlying the hip capsule. Released the TFL off of the pelvis leaving a tag for later repair. A second cobra retractor was placed on the inferior femoral neck. A double-bent soft tissue retractor was placed on the anterior wall of the acetabulum and used to tension the reflected head of rectus femoris, which was then released in order to limit soft tissue tension. A capsulotomy was made in the midline of the anterior hip capsule in line with the femoral neck ending at the vastus tubercle. The double-bent retractor was removed in order to limit the amount of time that a soft tissue retractor remained on the anterior wall and protect the femoral nerve. Tag stitches were placed in the superior and inferior leaflets of the hip capsule. An [place] soft tissue retractor was introduced over the tag stitches and tensioned in the interval between the rectus femoris and the TFL in order to retract and protect those muscles. The cobra retractors were replaced intracapsularly, with one over the superior neck in the pocket created by the base of the greater trochanter and the other on the femoral head. The capsulotomy was extended laterally to the base of the greater trochanter and medially to the lesser trochanter. This required externally rotating the hip. Once the lesser trochanter had been identified, a neck cut was planned according to measurements from preoperative templating. A ruler was cut at the length measured between the superior aspect of the lesser trochanter and the collar of the prosthesis. This line was extended towards the inferior aspect of the lateral cobra retractor to plan a cut which would leave minimal residual femoral neck laterally. The neck was cut at 60 degrees of external rotation along that line. A second cut was performed to remove a large napkin ring and facilitate head extraction. The napkin ring cut and femoral head were removed.?? A broad anterior wall retractor was placed between the labrum and the anterior capsule so that the anterior capsule would prevent capturing and pinching the femoral nerve anteriorly. An additional retractor was placed on the posterior wall. External rotation and traction were applied through the [place] table so that the cut surface of the femoral neck would not restrict access to the acetabulum. The labrum was excised sharply and the pulvinar was excised with electrocautery to limit bleeding from branches of the obturator artery. Acetabular reamers were selected based on preoperative templating and measurements of the excised femoral head. These were introduced into the acetabulum. Fluoroscopy was utilized to replicate a standing AP pelvis radiograph by centering over the pelvis, rotating until there was appropriate symmetry between the obturator foramen, and introducing caudal tilt to match the position of the pubic symphysis relative to the sacrococcygeal junction according to the patient?s anatomy. Fluoroscopy was utilized to ensure appropriate reaming depth. Once satisfied with the reaming depth corresponding to the preoperative template and the pinch fit between the columns, an appropriate sized acetabular cup was selected which would provide 1 mm of press-fit. This cup was introduced and manipulated until appropriate abduction and anteversion angles were obtained with careful attention to appropriate abduction and anteversion angles as evaluated by the position of the cup relative to the anterior and posterior kaur of the acetabulum and the AP fluoroscopy which recreated the patient?s standing radiograph. The cup was impacted into place. Peripheral osteophytes were removed. The acetabular liner was then placed with care to ensure locking of the locking mechanism.? Attention was then turned to the femur. All retractors were removed, traction was released, a retractor was placed in the interval between the hip capsule and the gluteus minimus, and the hip was externally rotated to 90 degrees. Traction was applied through the [place] table to tension the lateral capsule and this was released using electrocautery. Traction was released and a [place] hook was placed posteriorly around the proximal femur at the level of the vastus ridge. The table height was lowered in order to restrict the tension on the anterior structures during hip hyperextension to limit the risk of femoral nerve palsy. With traction off and the hip at 90 degrees of external rotation, the hip was hyperextended and adducted while manually elevating the femur away from the acetabulum with the [place] hook to ensure it would not be caught behind the greater trochanter. An asymmetric retractor was placed over the calcar and a broad double-pronged retractor was placed over the greater trochanter. The tag stitch capturing the lateral leaflet of the capsule was moved to the medial side, leaving the conjoined and piriformis tendons isolated in the face of the greater trochanter. The hip was externally rotated and elevated. A release of the conjoined tendon was necessary in order to obtain adequate exposure for broaching. The canal was opened with an opening broach and a rasp was used to remove cancellous bone. A rongeur was used to remove the residual lateral bone at the base of the greater trochanter to avoid placing the stem in varus. The femur was then broached to the appropriate sized stem yielding good rotational fit and fill of the canal as well as appropriate version of the stem trial. Neck and head trials were placed, all retractors were removed and the hip was returned to neutral abduction and extension. I then reduced the hip. Initial trialing was performed with a size 7 broach, a high offset neck and a +8.5 head. I typically manually reduce the hip myself, however in this case given the amount of lengthening I was aiming to achieve I required assistance through the traction table. I initially manually externally rotated the hip and found no instability. I then locked the hip in 45 degrees of external rotation and dropped it to the floor with traction off which demonstrated no instability. An AP pelvis fluoroscopic image matching the preoperative standing radiograph with both lesser trochanters visible and both hips in 40 degrees of external rotation demonstrated appropriate lengths, as anticipated given the symmetric construct on the other side. AP and lateral hip fluoroscopic images were obtained to evaluate the broach size which demonstrated good canal fill. The hip was dislocated and I returned to the broaching position. Based on my evaluation during initial trialing I planned to place the definitive implants. The definitive stem was placed and the trunnion was cleaned and dried. I placed a ceramic head onto the trunnion and impacted it into place on the Reynolds taper.?? All retractors were removed and the hip was reduced. A dilute mixture of betadine and peroxide was used to bathe the soft tissues during final fluoroscopic assessment. Appropriate component positioning was confirmed on an AP pelvis radiograph with the operative and nonoperative legs in 40 degrees of external rotation, evaluating leg length and offset. Appropriate stem fill was evaluated on AP and lateral hip radiographs. No fractures were identified on these radiographs. There was no hip instability with maximum (95?) external rotation as well as a 45 degree drop test. The hip was copiously irrigated with pulse lavage. The capsule was closed with absorbable interrupted suture. The TFL fascia was closed with barbed suture while carefully protecting the lateral femoral cutaneous nerve from entrapment. A mixture of Ropivacaine, Epinephrine, Clonidine and Toradol was infiltrated throughout the soft tissues. The skin was closed with 2-0 and 3-0 sutures. Surgical glue was applied and a soft dressing was placed.??The sponge, ins trument and needle counts were reported as being correct at the end of the case.??No obvious complications occurred. The patient was transferred from the [place] table back to a stretcher. The patient emerged from anesthesia without difficulty and was taken to the PACU in a stable condition.? Plan for aftercare: * Anterior hip precautions * Weightbearing as tolerated * Aspirin 81 twice per day for DVT prophylaxis * Anticipate discharge home tomorrow * Change into normal clothes upon arrival on the hospital floor * Mobilize in the halls as much as is logistically possible. If physical therapy is unavailable for mobilization, then patient should mobilize with nursing staff * Multimodal pain regimen with no IV opioids ordered * Apply ice machine to operative hip. Ensure that sufficient ice is in the chamber for the pad to remain cold * Follow up at [facility] in 2 weeks * Detailed postoperative instructions available at [email or web address]
--- NOTE | 2024-05-12 15:14 | SUR.OPER ---
Patient supine on padded [place] table, both arms on padded arm board at <90, both legs secured in padded traction boots and positioned per surgeon, padded post at patient's groin, pressure points checked and padded.
[2024-05-12] MEDS: ONDANSETRON 4 MG/2 ML INJ IV ×2 (16:29→19:32)
[2024-05-12] MEDS: METOCLOPRAMIDE 10 MG/2 ML INJ IV (16:37)
[2024-05-12] MEDS: CEFAZOLIN 2 GM/100 ML PREMIX 100 ML IV (18:55)
[2024-05-12] MEDS: LACTATED RINGERS 1,000 ML 100 ML IV (18:57)
[2024-05-12] MEDS: OXYCODONE IR 5 MG TABLET PO ×2 (19:44→22:19)
[2024-05-12] MEDS: ASPIRIN EC 81 MG TABLET PO (21:32)
[2024-05-12] MEDS: DOCUSATE 100 MG CAPSULE PO (21:32)
[2024-05-12] MEDS: GABAPENTIN 300 MG CAPSULE 900 MG PO (21:32)
[2024-05-12] MEDS: TRAZODONE 50 MG TABLET 100 MG PO (21:32)
[2024-05-13] MEDS: ACETAMINOPHEN 325 MG TABLET 650 MG PO ×2 (01:39→05:38)
[2024-05-13] MEDS: OXYCODONE IR 10 MG TABLET PO (01:39)
[2024-05-13] MEDS: CEFAZOLIN 2 GM/100 ML PREMIX 100 ML IV (01:40)
[2024-05-13] MEDS: ONDANSETRON 4 MG/2 ML INJ IV (01:42)
[2024-05-13 01:51] VITALS: BP 137/79; PULSE 112; RESP 19; TEMP 36.8; O2SAT 93
[2024-05-13] MEDS: OXYCODONE IR 5 MG TABLET PO ×2 (05:38→10:55)
[2024-05-13 06:19] LABS: Hematocrit 30.1 % (41-53); Hemoglobin 10.4 g/dL (13.5-17.5)
[2024-05-13 08:00] VITALS: BP 126/78; PULSE 135; RESP 17; TEMP 37.3; O2SAT 97
[2024-05-13] MEDS: GABAPENTIN 300 MG CAPSULE 900 MG PO (08:34)
[2024-05-13] MEDS: MELOXICAM 7.5 MG TABLET 15 MG PO (08:34)
[2024-05-13] MEDS: DOCUSATE 100 MG CAPSULE PO (08:34)
[2024-05-13] MEDS: ASPIRIN EC 81 MG TABLET PO (08:34)
[2024-05-13 08:51] VITALS: PULSE 132
--- NOTE | 2024-05-13 10:02 | PC.NURSE ---
1000 surgical PA on unit. This RN informed her of pt's continued HR in the 130s. Pt has been able to void. urine is clear/lillie. 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
--- NOTE | 2024-05-13 10:18 | PT.IIE ---
Current Diagnoses Unilateral primary osteoarthritis, right hip (05/12/24) Surgery Performed Operation Date: 05/12/24 13:45 Actual Procedures p Total Hip Arthroplasty/Anterior Approach(Right) - Bhupendra Corcoran MD Surgical History (Last Updated 05/09/24 @ 11:53 by Marie Espinal, RN) History of total left hip arthroplasty (03/31/24) Hx of tonsillectomy Medical History (Last Updated 03/16/24 @ 14:37 by Marie Espinal, RN) Anxiety Arthritis Concussion Degenerative joint disease of both hips Depression Facet arthropathy, lumbar Gait instability Herniated nucleus pulposus, L5-S1 Mini stroke (2012) MILAGROS (obstructive sleep apnea) PTSD (post-traumatic stress disorder) Spinal stenosis Tibia fracture Physical Therapy Inpatient Evaluation/Re-Eval M1 PT/OT-IP Prior Functional Status Start: 05/13/24 13:06 Freq: NEEDED Status: Active Protocol: Document 05/13/24 10:18 AB (Rec: 05/13/24 13:21 AB [id number]) Medical Review Prior Functional Status Medical History Reviewed Yes Communication able to make needs known Mobility and Gait pt stated that he was indpeendent with all mobilities and ambulation without AD Social History Household Members none Living Arrangements RV Number of Floors (Floors) One Floor Number of Stairs To Enter/Railing? 4 steps L grab bar on edge of door Home Environment Standard Height Toilet,Tub/ Shower Home Equipment Front Wheel Walker,Hand Held Shower,Lift Recliner Additional Social History Comment pt has a toilet safety frame pt's GF will stay with pt to assist and daughters also will come in to assist pt pt plans to sleep on his lift chair on d/c M2 PT-IP Current Condition Start: 05/13/24 13:06 Freq: NEEDED Status: Active Protocol: Document 05/13/24 10:18 AB (Rec: 05/13/24 13:21 AB [id number]) Physical Therapy Current Condition Current Condition Evaluation Date 05/13/24 Treatment Diagnosis s/p R JOSE anterior; difficulty in walking Onset Date 05/12/24 M3 PT-IP Subjective Start: 05/13/24 13:06 Freq: NEEDED Status: Active Protocol: Document 05/13/24 10:18 AB (Rec: 05/13/24 13:21 AB [id number]) Subjective Physical Therapy Visit Type Type Initial Evaluation Visit Start Time 10:18 Visit Stop Time 11:10 Number of PRIZER HAND Visits 0 Physical Therapy Visit Comments Patient Comments agreeable to do PT Therapy Pain Assessment Pain When Pain Assessed At Rest Pain Present Pain Present Pain Reported Location Right Hip Intensity 4 Scale Used increases 10/10 with movement Description Sharp Pain Management Techniques Apply Cold,Distraction, Modification of Treatment,Re- positioning,Timing of Activity with Medications M4 PT-IP Mobility and Gait Start: 05/13/24 13:06 Freq: NEEDED Status: Active Protocol: Document 05/13/24 10:18 AB (Rec: 05/13/24 13:21 AB [id number]) PT-Bed Mobility Assessment Supine to Sit Supine to Sit Minimal Assistance,1 Person Assistance,Head of Bed Elevated,Bedrails PT-Transfer Assessment Sit to and From Stand Sit to and from Stand Standby Assistance,Contact Guard Assistance,1 Person Assistance,Use of Upper Extremities Equipment Transfer Assistive Device Gait Belt,Front Wheeled Walker Orthotic/Prosthetic Devices or Brace: No Transfers Transfer Technique ambulated Transfer Ability Level of Assist Standby Assistance,Contact Guard Assistance,1 Person Assistance,Use of Upper Extremities Comments Mobility Comments pt supine in bed. daughter in room. obtained PLOF and home set up. post-op folder provided and reviewed contents . educated pt and daughter regarding pt's R hip anterior precautions. BP: 163/89 [place]: 135. pt stated that he will be setting up and appointment with his PCP for his BP and HR . pt completed supine to sit min A and max cues . c/o increase R hip pain. completed sit to stand CGA and ambulated to the chair using FWW CGA. pt sat on the chair. c/o increase R hip pain. caregiver training was done when pt had his L JOSE last month and daughter stated that she still knows how to assist pt. daughter also works as an NAC. daughter was ablet to put safety belt on pt. pt completed sit to stand sBA and ambulated in the hallway ~ 150 ft using fWW SBA. occasional cues for hip precautions. pt rested on w/c. educated pt and daughter regarding stair climbing. pt completed up/down steps L rail ascending SBA. pt ambulated back to his room using FWW SBA ~ 150 ft. standing rest breaks needed during ambulation with c/o feeling tired but pt does not want to sit on the w/c due to R hip pain. pt ambulated to the chair. sat on the chair and positioned. Left pt with NAC and daughter. Gait Assessment Gait Gait Assistance Required: Standby Assistance,Contact Guard Assist Distance (Feet) 150 Able to Maintain Weight Bearing Status Yes During Gait Assistive Devices Assistive Device Gait Belt,Front Wheeled Walker Orthotic/Prosthetic Devices or Brace: No Gait Deviations General Gait Pattern Antalgic,Decreased Feet Clearance Factors Limiting Gait Function Factors Limiting Gait Function Decreased Activity Tolerance, Decreased Strength,Difficulty Following Directions,Limited Range of Motion,Pain,Poor Balance,Poor Safety Awareness Stair Climbing Assessment Evaluation Level of Assist On Stairs Contact Guard Assistance,1 Person Assistance Devices Stair Climbing Assistive Devices Left Railing Technique/Endurance Stair Climbing Direction Ascend and Descend Stair Climbing Technique Step to Step Number of Steps Climbed 3 Query Text: Stair Climbing Set # Repetitions (reps) 0 PT-Balance Assessment Sitting Balance and Reactions Static Sitting Balance Ability Normal Dynamic Sitting Balance Ability Good Standing Balance and Reactions Static Standing Balance Ability Fair Dynamic Standing Balance Ability Fair Device Used FWW M5 PT-IP Objective Assessments Start: 05/13/24 13:06 Freq: NEEDED Status: Active Protocol: Document 05/13/24 10:18 AB (Rec: 05/13/24 13:21 AB [id number]) Orientation Orientation/Cognition Level of Alertness Alert Orientation Name,Place,Situation Language Function Ability No Deficits Noted Memory Description Short Term Impaired Gross Range of Motion Lower Extremity ROM Assessment Within Functional Limits Strength Lower Extremity Strength Assessment Right Impaired Hip 3-/5 Knee 4-/5 Coordination Assessment Gross Coordination Gross Coordination WNL Sensation Assessment Sensation Gross Sensation WNL Muscle Tone Muscle Tone WNL Yes M6 PT-IP Treatment Start: 05/13/24 13:06 Freq: NEEDED Status: Active Protocol: Document 05/13/24 10:18 AB (Rec: 05/13/24 13:21 AB [id number]) Physical Therapy Treatment Exercises Exercises Heel Slides Education Education Provided Precautions,Weight Bearing Status,Post-Op Packet,Safety M7 PT-IP Assessment and Plan Start: 05/13/24 13:06 Freq: NEEDED Status: Active Protocol: Document 05/13/24 10:18 AB (Rec: 05/13/24 13:21 AB [id number]) PT Summary Assessment and Plan Potential Rehabilitation Potential Good Status of Condition at Evaluation Evolving Summary Impairments Pain Assessment Summary pt is a 44 y/o M s/p R JOSE anterior approach POD 1. pt with R hip anterior precautions and is WBAT. pt requiring SBA to CGA with mobility using FWW. pt will have his GF and daughters to help him at home. pt may go home when medically stable. Goals Bed Mobility Goal Independent Transfer Goal Independent,Front Wheeled Walker Gait Goal Independent,Front Wheel Walker Gait Distance 250 Other Goals up/down 4 steps L rail/grab bar mod I Days to Meet Goals 3 Frequency of Treatment Frequency Of Treatment Twice a Day Treatment Plan Physical Therapy Treatment Plan Bed Mobility Training,Transfer Training,Gait Training, Therapeutic Exercise,Balance Retraining,Post Op Education, Discharge Planning,Hot or Cold Pack,Neuromuscular Re-ed, Coordination Retraining,Manual Therapy Precautions Anterior Hip Precautions No Hip Extension,No Hip External Rotation Weight Bearing Status Weight Bearing Status Weight Bear as Tolerated Allowed Weight Bearing Amount (enter % RLE WBAT or #) (%) Recommendations To Nursing Amount of Assist Needed 1 Person Assist Discharge Recommendations PT Discharge Recommendations Home with Assistance, Outpatient PT Transportation Needs at Discharge Private Vehicle
--- NOTE | 2024-05-13 11:38 | P.DS_ITS ---
History of Present Illness History of Present Illness Chief complaint: OPB Narrative: Jesse is a pleasant 44-year-old male who is postop day #1 status post right total hip arthroplasty by Dr. Corcoran. This morning patient reports he is doing well, pain is mild-moderate and well controlled w/ oral pain medication alone. He reports he is feeling good today and is ready to d/c to home. He has been urinating well w/o issue. Has been up and worked w/ PT. He has family nearby to help w/ his post-op needs when he d/c to home, has walker and ice machine at home already. Has already picked up his post-op pain medications, he does not any have any anti-nausea medication at home. I will send some today prior to his d/c. He has his post-op PT appts scheduled already w/ [facility]. Denies fever, chills, chest pain, SOB, nausea, vomiting. Denies any feelings of lightheadedness. Admits to feeling fatigued from poor sleep overnight. Operative Date/Time/Diagnoses Date of procedure: 05/12/24 Pre-op diagnosis: Right hip osteoarthritis Post-op diagnosis: same Procedure & Clinicians Procedure: Right total hip arthroplasty Same procedure as scheduled: Yes Surgeon: Bhupendra Corcoran Social Services Analyst: Lola Jimenez Anesthesia Type: Spinal, Sedation and Local Operative Notes Estimated Blood Loss (mL): 350 Procedure in detail: Right Uncemented Direct Anterior Depuy Total Hip Arthroplasty: Implants: * Cascadia Gription size 58 cup?with +4 liner * Actis femoral stem size 7 high offset? * 36 mm +8.5 ceramic femoral head? Discharge Providers Provider Discharge Date: 05/13/24 Primary care physician: Perry Llamas MD Consults: 05/12/24 18:23 Consult to Discharge Planning Routine Comment: Consult to Physical Therapy Evaluate & Treat Comment: Physician Instructions: post op JOSE protocol Discharge provider: Lola Jimenez PA-C Summary Hospital Course Discharge Diagnosis: Stable status post right total hip arthroplasty Hospital Course: Patient has some post-op nausea/vomiting after surgery which has now resolved and he has had an otherwise uncomplicated hospital course. Exam Vital Signs (past 8 hours): - 05/13/24 08:00 05/13/24 08:51 Temperature 99.1 F Pulse Rate 135 H 132 H Respiratory Rate 17 Blood Pressure 126/78 Pulse Oximetry 97 Oxygen Delivery Method Room Air Oxygen Flow Rate 0 Narrative Exam Narrative: Patient sitting comfortably in bedside chair during our interview today. No acute distress. AOx3. Grossly normal alignment of the RLE w/o any significant swelling. TTP along incision site and IT band. Some mild bruising lateral to the incision site. 5/5 strength with DF, PF, EHL bilaterally. Gross sensation intact throughout bilateral lower extremities. Calves soft and non-tender bilaterally. SCDs are on and functioning. Brisk capillary refill, pulses intact. Post-surgical Aquacel dressing clean, dry and intact over the right hip without drainage. Objective Labs 05/13/24 05:18 Labs: Laboratory Results - last 24 hr 05/13/24 05:18 Hgb 10.4 L Hct 30.1 L PFSH Medical History (Updated 03/16/24 @ 14:37 by Marie Espinal RN) Tibia fracture Concussion Arthritis MILAGROS (obstructive sleep apnea) PTSD (post-traumatic stress disorder) Depression Anxiety Mini stroke (2012) Spinal stenosis Gait instability Facet arthropathy, lumbar Herniated nucleus pulposus, L5-S1 Degenerative joint disease of both hips Surgical History (Updated 05/09/24 @ 11:53 by Marie Espinal RN) History of total left hip arthroplasty (03/31/24) Hx of tonsillectomy Family History Mother Hypertension Social History household members: none Smoking Status: Never smoker alcohol intake: current Discharge Assessment & Plan Assessment and Plan Assessment: stable s/p R JOSE Plan of Treatment: 1) Plan to discharge to home today with daughter. 2) Continue multimodal pain management with ice to the hip for additional pain control. Patient has post-op pain medications at home. Zofran sent today for his nausea/vomiting. 3) ASA b.i.d. for DVT prophylaxis. 4) Start outpatient physical therapy to work on range of motion and mobility 5) Keep dressing intact, clean, dry until 2 week postop appointment. No soaking the incision site in pools or tubs. No topical ointments or creams to the incision site. 6) Follow up at [facility] orthopedic in 2 weeks for a postop appointment and wound check. All patient's questions were answered, they demonstrates understanding and are in agreement with the plan. Call our office if any questions or concerns arise. Discharge Plan Discharge Plan Patient Disposition: Home Provider Discharge Comment: Detailed postoperative instructions available at [email or web address] Discharge orders & Medications Discharge Orders: Discharge (Order); Ordered 05/13/24 Ordered By: Lola Jimenez Prescriptions: New aspirin 81 mg Tablet,Delayed Release (Dr/Ec) 81 mg PO BID Qty: 90 0RF docusate sodium 100 mg Capsule 100 mg PO BID PRN (Reason: constipation) Qty: 60 0RF ondansetron 4 mg Tablet,Disintegrating 4 mg PO Q4HR PRN (Reason: Nausea) Qty: 14 0RF oxycodone 5 mg Tablet 5 mg PO Q4-6H PRN (Reason: Pain, Moderate (4-6)) Qty: 30 0RF acetaminophen 500 mg capsule 1,000 mg PO Q8HR PRN (Reason: pain) Qty: 90 0RF Continued meloxicam 15 mg tablet 15 mg PO DAILY Qty: 30 2RF cyclobenzaprine 10 mg tablet 10 mg PO 3XD PRN (Reason: muscle spasm) gabapentin 300 mg capsule 900 mg PO BID trazodone 100 mg tablet 100 mg PO ONCE PM Follow up/Referrals: Perry Llamas MD [Primary Care Provider] - Bhupendra Corcoran MD [Physician] - (Follow up at [facility] as scheduled in 2 weeks. ) Diet/Activity/Treatments Diet: Diet as Tolerated Activity: Weightbearing as tolerated, maintain anterior hip precautions. Cold/Heat Therapy: Ice to the hip for additional pain control Skin/Wound/Dressing Care Report to your healthcare provider any signs of infection, such as:: chills, fever, night sweats, unusual drainage and unusual redness Dressing: Keep dressing intact, clean and dry until 2 week post-op appointment. No soaking the incision site in pools or tubs. No topical ointments or creams to the incision site. Visit Report/Discharge Packet Instructions: DI for Hip Replacement Stand Alone Forms: Patient Portal/API Discharge Data Primary Care Provider: Perry Llamas Attending Provider: Bhupendra Corcoran
[2024-05-13 12:00] VITALS: BP 117/75; PULSE 139; RESP 18; TEMP 36.1; O2SAT 97
--- NOTE | 2024-05-13 12:03 | CM.DANOTE ---
B DCP Assessment Note Pt is a 44yo M POD1 from right total hip by Dr. Corcoran PCP Perry Kaufman BCBS out of [facility] and self pay HEAD SWAMPER reviewed EMR. per chart, pt had left hip done 03/31/24. Discharged home the next day with dtr support and no CM needs. Per chart from previous hip surgery, pt lives alone indep and discharged home with friend/dtr support. Had a walker for home use. PT pending for this admission. Dc order in. Per ortho PA dc sum, pt eager to dc home and already has post op PT appts scheduled. P: home today, likely no CM needs. and OP f/u. CM team will continue to follow as needed DENISSE Sharif Discharge Planning/Care Management CM Discharge Assessment Start: 05/13/24 12:01 Freq: Status: Active Protocol: Document 05/13/24 12:01 SL (Rec: 05/13/24 12:03 SL [id number]) Discharge Planning Assessment Assigned Senior Oracle Adf Developer DENISSE Matute Advance Directives? No History Provided By Patient,Medical Record Prior Living Arrangements RV Household Members none Type of transporation used prior to Drives own vehicle admit Independent with ADL's Yes Is patient alert and oriented? Yes Caregiver for Another No DME Already Rented / Owned FWW / Walker Patient/Family Preference OP PT Therapy Barriers to Discharge No Discharge Plan Home Transportation Arrangement Daughter Referrals Initiated None needed Review Status In Process Please Provide Date Initial DC 05/13/24 Assessment Was Performed Next Review Type Continued Stay Review Pre-Anesthesia Assessment Start: 05/09/24 11:54 Freq: Status: Active Protocol: Document 05/09/24 11:54 LB (Rec: 05/09/24 12:04 LB [id number]) Pre-Anesthesia Assessment PAC Comment 05/09/24 Chart review. Preferred Name Isra Comment H&H 04/01/24 at . Primary Care Provider Perry Llamas Medical Clearance Received Not Applicable Seen Specialist in Last 12 Months Yes Specialist Seen Orthopedist Primary Language Emirati Preferred Language Emirati Emergency Telecommunications Dispatcher Required No Height 172.72 cm Weight 98.883 kg Body Mass Index (BMI) 33.1 Hearing Ability Normal Visual Assist Glasses Dentition Type Teeth, Missing Barriers to Learning None Other Aids No Hx Anesthesia Reactions No Hx Family Anesthesia Reaction No Hx Malignant Hyperthermia No Hx Blood Transfusions No Hx Blood Transfusion Reaction No Anesthesia Review Requested No Law Enforcement Officer No alcohol intake current alcohol intake frequency a few times a month Smoking Status Never smoker Substance Use Type marijuana History of Falling (Recent or History of Yes ) Comment 03/18 hip gave out Patient is completely paralyzed or No completely immobile Mental Status Oriented to own ability Is patient on oxygen? No Does patient have PAIGE/SOB No Hx Sleep Apnea Yes CPAP/BIPAP use prescribed and used routinely Currently Taking a Beta Jose No Hx Chest Pain No Hx SOB No Hx Syncope or Dizziness No Anti-Coagulant Therapy No Cardiac Testing No Hx Pacemaker/ICD No Dysphagia No Chronic UTI No Urinary Catheter Present No Hx Urinary Self Catheterization No Diabetes No Hx Drug Resistant Organism No Presence of External or Internal Medical Yes: left hip. Devices Received a COVID vaccine? Yes: x1 BOOST Lives With none Current Living Arrangements RV Number of Floors (Floors) One Floor Number of Stairs To Enter/Railing? 4 stairs with railing. Support System Child/Children,Significant Other Does the Patient Have Assistance After Yes Surgery Patient Discharge Plan Description Return Home Feels Safe in Current Environment Yes Do You Have Any Spiritual Beliefs That No May Affect Your HC Choices? Do You Have Any Cultural Practices That No May Affect Your HC Choices? Health Care Proxy/Next of Kin Flyienne - daughter Health Care Proxy Emergency Contact Name Estella MOREIRA Emergency Contact Advance Directives? No
== END 2024-05-13 12:40 | disposition home or self-care (01) ==
LOC: OR 11:54 → AC 12:37
PROVIDERS: PCP Family Medicine Sports Medicine; Referring Provider Orthopaedic Surgery Adult Reconstructive Orthopaedic Surgery; Visit Provider Orthopaedic Surgery Adult Reconstructive Orthopaedic Surgery
PROC: (CPT 27130; principal; 2024-05-12 13:45)
DX: M16.11 Unilateral primary osteoarthritis, right hip (principal); M25.751 Osteophyte, right hip
CPT/HCPCS: 27130; 36415; 73502; 76000; 85014; 85018; 97162; 97530; C1776; J0690; J1171; J2250; J2405; J2704; J2765

== ENCOUNTER → 2024-06-19 15:01 | Outpatient (CLI) | payer BC, SELFPAY ==
[2024-05-12 18:27] VITALS: BMI 34.0
--- NOTE | 2024-06-19 15:03 | DI.RAD.S_ITS ---
PROCEDURE: XR LUMBAR SPINE MIN 4V INDICATIONS: BACK PAIN TECHNIQUE: 5 views of the lumbar spine were acquired, including bilateral oblique views. COMPARISON: [facility], CR, XR LUMBAR SPINE WITH FLEXION EXTENSION 5 VIEWS, 01/11/2023, 13:00. [facility], MR, MR LUMBAR SPINE WITHOUT CONTRAST, 03/28/2023, 7:24. FINDINGS: Bones: 5 nonrib-bearing vertebrae are present. Anterolisthesis of L4 on L5 measuring 0.6 cm. Small vertebral body osteophytes. Facet joint hypertrophy. Mild disc space height loss at L4-L5 and L5-S1. No vertebral body compression fractures. No suspicious bony lesions. Bilateral hip arthroplasties. Soft tissues: Overlying bowel gas pattern is normal. No suspicious soft tissue calcifications. Oblique images: No pars defects. IMPRESSION: No significant interval change. Mild degenerative changes and DDD. Dictated by: Norris Chou M.D. on 06/19/2024 at 16:29 Approved by: Norris Chou M.D. on 06/19/2024 at 16:31
== END ==
PROVIDERS: PCP Family Medicine Sports Medicine; Referring Provider Physical Medicine & Rehabilitation; Visit Provider Physical Medicine & Rehabilitation
DX: M51.27 Other intervertebral disc displacement, lumbosacral region (principal); M47.816 Spondylosis without myelopathy or radiculopathy, lumbar region; M51.369 Other intervertebral disc degeneration, lumbar region without mention of lumbar back pain or lower extremity pain
CPT/HCPCS: 72110